=== PATIENT | male | born 1965 | race Caucasian/White ===

== ENCOUNTER 2020-04-17 16:01 | Emergency (ER) | payer BC ==
[~2020-04-17] VITALS: Ht 172.7 cm; Wt 88.6 kg
[2020-04-17] MEDS ORDERED: LIDOCAINE 1%/EPI 1:100,000 20 ML VIAL. ONE (16:13)
--- NOTE | 2020-04-17 16:31 | PHYS DOC ---
General Adult EDM: Chief Complaint: LACERATION/AVULSION HPI: HPI: History obtained from the patient. Patient is a 54-year-old male who presents with chief complaint of right thumb avulsion laceration. He states he is right- handed. He states he was working on a grain truck when a part slipped cutting h is thumb. He noted immediate bleeding. He is unsure of his last tetanus. He states that he notes pain in the distal aspect of his right thumb. Denies wrist pain. No other complaints. Review of Systems: Review of Systems: Constitutional: Denies fever or chills Eyes: Denies change in visual acuity HENT: Denies nasal congestion or sore throat Respiratory: Denies cough or shortness of breath Cardiovascular: Denies chest pain or edema GI: Denies abdominal pain, nausea, vomiting, bloody stools or diarrhea : Denies dysuria Musculoskeletal: Denies back pain or joint pain Integument: Positive for laceration Neurologic: Denies headache, focal weakness or sensory changes Endocrine: Denies polyuria or polydipsia Lymphatic: Denies swollen glands Psychiatric: Denies depression or anxiety Heart Score: Risk Factors: Risk Factors: DM, Current or recent (<one month) smoker, HTN, HLP, family history of CAD, obesity. Risk Scores: Score 0 - 3: 2.5% MACE over next 6 weeks - Discharge Home Score 4 - 6: 20.3% MACE over next 6 weeks - Admit for Clinical Observation Score 7 - 10: 72.7% MACE over next 6 weeks - Early Invasive Strategies Current Medications: Current Meds: Current Medications Medications (Trade) Dose Ordered Sig/Arthur Start Time Stop Time Status Last Admin Dose Admin Diphtheria/ Pertussis/Tetanus Vacc (ADACEL TDap SYRINGE) 0.5 ml ONCE ONCE 04/17/20 16:30 04/17/20 16:31 Lidocaine/ Epinephrine (Xylocaine 1%-Epi 1:100,000) 20 ml STK-MED ONCE 04/17/20 16:13 04/17/20 16:14 DC Allergies: Allergies: Allergies Coded Allergies Type Severity Reaction Last Updated Verified No Known Drug Allergies 04/17/20 No Physical Exam: PE: Constitutional: Well developed, well nourished, no acute distress, non-toxic appearance. [] HENT: Normocephalic, atraumatic, bilateral external ears normal, oropharynx moist, no oral exudates, nose normal. [] Eyes: PERRLA, EOMI, conjunctiva normal, no discharge. [] Neck: Normal range of motion, no tenderness, supple, no stridor. [] Cardiovascular:Heart rate regular rhythm, no murmur [] Lungs & Thorax: Bilateral breath sounds clear to auscultation [] Abdomen: , soft, no tenderness, no masses, no pulsatile masses. [] Skin: 1 x 1 cm avulsion injury to the pad of the right thumb. Exposed adipose tissue and phalanx. No epidermis left over the avulsion injury. Back: No tenderness, no CVA tenderness. [] Extremities: No tenderness, no cyanosis, no clubbing, ROM intact, no edema. [] Neurologic: Alert and oriented X 3, normal motor function, normal sensory function, no focal deficits noted. [] Psychologic: Affect normal, judgement normal, mood normal. [] EKG: EKG: [] Radiology/Procedures: Radiology/Procedures: [place] [address] IMAGING REPORT Signed PATIENT: KRYSTEN MARION ACCOUNT: [id number] : 1965 LOCATION: ER AGE: 54 SEX: M EXAM STATUS: REG ER ORD. PHYSICIAN: CLIF COLEMAN DO REASON: trauma PROCEDURE: HAND RIGHT 2V Right hand 3 views 04/17/2020. Reason for exam: Injury. No acute fracture or dislocation is seen. Joint spaces are fairly well maintained. There are small densities in the index finger and over the dorsum of the long finger consistent with foreign bodies. IMPRESSION: No acute bony abnormality. Electronically signed by: Mayte Galloway Jr., MD (04/17/2020 4:53 PM) [facility] DICTATED AND SIGNED BY: MAYTE GALLOWAY Jr, MD DATE: 04/17/201652 CC: CECILIO BURNS; CLIF COLEMAN DO ~ [] Course & Med Decision Making: Course & Med Decision Making Pertinent Labs and Imaging studies reviewed. (See chart for details) Patient is a 54-year-old right-handed male who presents with chief complaint of avulsion injury to the distal, palmar aspect of his right thumb. No bone visualized on inspection. Plain film imaging reveals no acute fracture. Pablo us was updated. Digital block performed. Wound irrigated with 1000 mL of sterile saline. I did discuss the case with hand surgeon at [facility] Dr. He. He recommended close follow-up either today or tomorrow evening and there after hours clinic. He will be discharged home with oral Keflex. Patient is agreeable to this. He did have his wound dressed with Vaseline gauze, splint, and padding. Return precautions discussed and understood. Stable for discharge home. Dragon Disclaimer: Dragon Disclaimer: This electronic medical record was generated, in whole or in part, using a voice recognition dictation system. Departure Departure: Impression: Primary Impression: Thumb laceration Qualified Codes: S61.011A - Laceration without foreign body of right thumb without damage to nail, initial encounter Disposition: HOME/RESIDENCE PRIOR TO ADM Condition: STABLE Referrals: CECILIO BURNS (PCP) Additional Instructions: Please call [facility] after Hours hand clinic tomorrow morning. Mention "after hours clinic specifically." [phone] Scripts Hydrocodone Bit/Acetaminophen (NORCO 5-325 TABLET) 1 Each Tablet 1-2 TAB PO Q4-6HRS for pain, #10 TAB Prov: CLIF COLEMAN DO 04/17/20 Cephalexin (KEFLEX) 500 Mg Capsule 500 MG PO QID for laceration for 7 Days, #28 TAB Prov: CLIF COLEMAN DO 04/17/20 Justification of Admission: Justification of Admission: Justification of Admission Dx: N/A CLIF COLEMAN DO Apr 17, 2020 16:31
--- NOTE | 2020-04-17 16:56 | RAD ---
Right hand 3 views 04/17/2020. Reason for exam: Injury. No acute fracture or dislocation is seen. Joint spaces are fairly well maintained. There are small densities in the index finger and over the dorsum of the long finger consistent with foreign bodies. IMPRESSION: No acute bony abnormality. Electronically signed by: Juan Carlos Galloway Jr., MD (04/17/2020 4:53 PM) [facility]
[2020-04-17] MEDS: CEPHALEXIN 250 MG CAPSULE PO ONE (17:00)
[2020-04-17] MEDS ORDERED: HYDR-3165 PO (17:35)
[2020-04-17] MEDS ORDERED: CEPH-264 PO (17:35)
[2020-04-17] MEDS: DIPH,PERTUSS(ACELL),TET VAC/PF 0.5 ML SYRINGE. VAX IM ONE (19:42)
== END 2020-04-17 17:50 | disposition home or self-care (01) ==
LOC: ER 16:01
DX: S61.011A Laceration without foreign body of right thumb without damage to nail, initial encounter (principal); W26.8XXA Contact with other sharp object(s), not elsewhere classified, initial encounter; Y93.89 Activity, other specified; Y92.89 Other specified places as the place of occurrence of the external cause; Y99.8 Other external cause status
CPT/HCPCS: 64450; 73120; 90471; 90715; 99283; 99284